=== PATIENT | female | born 1975 | race Asian ===

== ENCOUNTER 2016-12-25 18:52 | Emergency (ER) | payer SELFPAY ==
[2016-12-25 18:58] VITALS: BP 97/71; PULSE 61; RESP 18; TEMP 98.2; O2SAT 98
--- NOTE | 2016-12-25 19:06 | EDPHY ---
H & P Time Seen by Provider: 12/25/16 18:59 HPI/ROS: CHIEF COMPLAINT: CAT SCRATCH HISTORY OF PRESENT ILLNESS: Scratched by friends vaccinated cat by accident, this afternoon. No redness or swelling and no weakness or numbness distally. REVIEW OF SYSTEMS: No other injuries PAST MEDICAL HISTORY: Negative. Did have childhood immunizations and rabies vaccine but no recent tetanus. Social history: Primarily Mandarin speaking, history through phone scrap handler. General Appearance: Alert and conversant, cooperative. 2 cm abrasion on the right lateral foot. Normal motor and sensory. Normal perfusion. No surrounding redness or warmth or drainage or discharge from the wound. Emergency Department course/MDM: Does not look infected. Page Technician used asked about tetanus vaccine status. Standard wound care. Tetanus updated. I do not think antibiotics or additional rabies vaccine is indicated. Smoking Status: Never smoked Constitutional: Initial Vital Signs Temperature (C) 36.8 C 12/25/16 18:55 Heart Rate 61 12/25/16 18:55 Respiratory Rate 18 12/25/16 18:55 Blood Pressure 97/71 L 12/25/16 18:55 O2 Sat (%) 98 12/25/16 18:55 O2 Delivery Mode Room Air Allergies/Adverse Reactions: No Known Allergies Allergy (Unverified 12/25/16 18:54) Home Medications: Medication Instructions Recorded NK [No Known Home Meds] 12/25/16 MDM/Departure - MDM Medications Given: Discontinued Medications Diphtheria/Tetanus/Acell Pertussis (Boostrix) 0.5 ml IM .ONCE ONE Stop: 12/25/16 19:15 Last Admin: 12/25/16 19:19 Dose: 0.5 ml - Depart Disposition: Home, Routine, Self-Care Clinical Impression: Cat scratch Condition: Good Instructions: Acute Wounds (ED) Referrals: Angélica Dumont DO [Doctor of Osteopathy] - As per Instructions
[2016-12-25] MEDS ORDERED: TDAP ADULT 0.5 ML INJ (BOOSTRIX) IM ONE (19:14)
== END 2016-12-25 19:40 | disposition home or self-care (01) ==
DX: S90.811A Abrasion, right foot, initial encounter (principal); Z23 Encounter for immunization; W55.03XA Scratched by cat, initial encounter